=== PATIENT | female | born 2005 | race Caucasian/White ===

== ENCOUNTER 2024-02-12 19:43 | Emergency (ER) | payer BC ==
[2024-02-12] MEDS ORDERED: IBUPROFEN 600 MG TAB PO ONE (21:24)
[2024-02-12] MEDS ORDERED: ACETAMINOPHEN TAB 325 MG TAB ONE (21:24)
[2024-02-12] MEDS ORDERED: SODIUM CHLORIDE 0.9% 1,000 ML BAG ONE (21:40)
[2024-02-12] MEDS ORDERED: MORPHINE SULFATE 2 MG/ML SYRINGE ONE (23:23)
== END 2024-02-13 01:55 | disposition home or self-care (01) ==
LOC: EC 19:43
DX: B34.9 Viral infection, unspecified (principal)
CPT/HCPCS: 96361; 96374; 99282

== ENCOUNTER 2024-02-13 19:35 | Emergency (ER) | payer BC ==
[2024-02-13] MEDS ORDERED: SODIUM CHLORIDE 0.9% 1,000 ML BAG ONE (20:51)
[2024-02-13] MEDS ORDERED: diphenhydrAMINE 50 MG/ML 1 ML VIAL ONE (21:29)
[2024-02-13] MEDS ORDERED: KETOROLAC 15 MG/ML 1 ML VIAL ONE (21:29)
[2024-02-13] MEDS ORDERED: ONDANSETRON 4 MG/2 ML VIAL ONE (21:29)
== END 2024-02-13 23:10 | disposition home or self-care (01) ==
LOC: EC 19:35
DX: R50.9 Fever, unspecified (principal)
CPT/HCPCS: 96361; 96374; 96375; 99283